=== PATIENT | male | born 1950 | race Caucasian/White ===

== ENCOUNTER → 2017-01-23 | Outpatient (CLI) | payer BC ==
[~2017-01-23] MED LIST: AMLO-110 PO; FLEC100T21 PO; HYDR25TA4 PO; LISI40TA PO; MULT-884 PO; RIVA1TAB4 PO; TPRSR/50 PO
== END | disposition home or self-care (01) ==
LOC: C.PATHSPEC 11:36
PROVIDERS: ATTEND Ophthalmology
DX: L72.0 Epidermal cyst (principal)